=== PATIENT | female | born 1985 | race Asian ===

== ENCOUNTER 2024-05-09 09:06 | Emergency (ER) | payer MEDICARE, SELFPAY ==
[2024-05-09 09:08] VITALS: BP 138/95
--- NOTE | 2024-05-09 09:49 | ED.GENMED ---
History of Present Illness
General
Chief Complaint: Crisis Evaluation
Source: patient and family
Exam Limitations: none
Time Seen by Provider: 05/09/24 09:25
Nursing documentation reviewed up to this point in time: agreed with
History of Present Illness
History of Present Illness:
Patient is a 38 old female with a past medical history bipolar disorder who has been living in [place] for the past several years and traveled back to [facility] yesterday. She has managed by psychiatrist in [place] on lorazepam 2 mg at bedtime for
sleep and olanzapine 7.5 mg which she has been on since October. (Last had lorazepam 2 days ago however has been taking her olanzapine )prior to living in [place] patient was living here in the and used to be a patient of [facility].
they are in the process of trying to get her back there. She has been taking a lot as any but only has a couple doses left and they would not let her bring her lorazepam on the airplane. Because she has not had her lorazepam she has not been able
to sleep. Mom at bedside patient used to be a patient of [facility] and mom has been trying to get an appointment with them and arrange outpatient follow-up but has not been able to do so yet.
Patient denies any suicidal thoughts.
Past History
Past History
ED Past Medical History: Psychiatric (Bipolar disease)
Social History
Tobacco: Other (Unknown)
Alcohol: Other (Unknown)
Drug: Other (Unknown)
Review of Systems
Review of Systems
Allergies reviewed?: Yes
Other source history: family
All Other Systems: ROS reviewed and negative except as documented in HPI and ROS
Constitutional: Reports sleep disturbance; Denies fever, fatigue or chills
Respiratory: Reports no symptoms
Cardiac: Reports no symptoms
ABD/GI: Reports no symptoms
: Reports no symptoms
Musculoskeletal: Reports no symptoms
Skin: Reports no symptoms
Neurological: Reports no symptoms
Psychiatric: Reports no symptoms
Phy Exam
General Physical Exam
General Presentation: no apparent distress
General age: appears stated age
General Skin: warm and dry
General Habitus: normal
General Mental: alert
General Hydration: appears well hydrated
Cardiovascular Exam
Cardiovascular Exam: regular rate/rhythm and normal peripheral pulses
Pulmonary Exam
Pulmonary Exam: lungs clear and no respiratory distress
Neurological Exam
Neurological Exam: alert and oriented x3
Musculoskeletal Exam
Musculoskeletal Exam: full ROM
Skin Exam
Skin Exam: normal color and warm/dry
Psychiatric Exam
Psychiatric Exam: normal mood/affect
Course
Orders/Labs/Results
Orders:
Orders
05/09/24 09:48
Crisis Consult Urgent
Reason for Consult: eval for follow up
Vital Signs
Initial and Last Documented VS:
Initial Vital Signs
Temp Pulse Resp BP Pulse Ox
98.2 F 96 18 138/95 98
05/09/24 09:08 05/09/24 09:08 05/09/24 09:08 05/09/24 09:08 05/09/24 09:08
Last Documented Vital Signs
Temp Pulse Resp BP Pulse Ox
98.2 F 96 18 138/95 98
05/09/24 09:08 05/09/24 09:08 05/09/24 09:08 05/09/24 09:08 05/09/24 09:08
MDM/Problems Addressed
Differential Diagnosis Includes:
Not limited prescription refill sleep disturbance
MDM/Problems Addressed:
As documented patient is a 38 old female with prior history of bipolar disorder managed on lorazepam 2 mg nightly for sleep and olanzapine. She recently moved from [place] and was not able to bring lorazepam here and only had several days of her
olanzapine left. She complains of not being able to sleep. She has no suicidal thoughts. She is awake alert calm cooperative in no acute distress well-appearing. She is in the process of getting back to [facility] as prior to moving to
[place] she was a patient there. She was seen by crisis here who will assist in getting patient outpatient resources. I will review fill olanzapine for the next month however discussed with mother and patient only able to give a short course for 7
days of lorazepam. She was given family practice clinic for family doctor follow-up as well as information for outpatient resources and [facility].
*Critical Care Note
Total Time (30-74mins, 75-104mins- exclusive of procedures): Not Applicable
ED Attending Note
-
Portions of this chart may have been created with voice recognition software.� Occasional wrong word or��sound alike� substitutions may have occurred due to the inherent limitations of voice recognition software.
Discharge Plan
Departure
Patient Disposition: Home (Routine Discharge)
Date of Disposition: 05/09/24
Time of Disposition: 10:48
Patient with high blood pressure during this ER visit?: Yes
Condition: Fair
Covid-19: Not Applicable
Discharge Problem:
Encounter for medication refill
Prescriptions:
New
lorazepam 2 mg tablet
2 mg PO HS MDD Sore PRN (Reason: Sleep) Qty: 7 0RF
olanzapine 7.5 mg tablet
7.5 mg PO DAILY Qty: 30 0RF
No Action
Latuda
1 tab PO . DIRECTED
Patient Comments:
hx unobtainable at this point.
Referrals:
Family Residency Program [Provider Group]
[facility] [Outside]
NONE,* [Family Provider] -
Stand Alone Forms: Return to Work
Activity Restrictions/Additional Instructions:
As discussed you were given outpatient resources for [facility]. Please follow-up as discussed. In regarding a family doctor you will be given family practice clinic here [facility]. A prescription for lorazepam(short
supply) was sent to your pharmacy as well as a prescription for olanzapine. Take as directed as you have been previously taking. Return if any worsening of symptoms.
Interventions
Interventions:
*Risk Screen - Suicide Last Done: 05/09/24 09:20
*General Assessment Last Done: 05/09/24 10:23
*Neglect/Abuse Screening Last Done: 05/09/24 09:20
*ED COVID-19 Vaccine History Last Done: 05/09/24 09:08
ED-Psychological Assessment Last Done: 05/09/24 10:17
Discharge Date and Time
Print Language: CROATIAN
== END 2024-05-09 11:05 | disposition home or self-care (01) ==
LOC: EMR 09:06
PROVIDERS: EMERGENCY PHYSICIAN Emergency Medicine
DX: Z76.0 Encounter for issue of repeat prescription (principal); F31.9 Bipolar disorder, unspecified; Z79.899 Other long term (current) drug therapy
CPT/HCPCS: 99282